=== PATIENT | female | born 1995 | race Caucasian/White ===

== ENCOUNTER 2017-12-10 15:04 | Emergency (ER) | payer SELFPAY ==
[2017-12-10 15:58] VITALS: BP 130/84
--- NOTE | 2017-12-10 16:26 | UC ---
Eye Complaint HPI - HPI Summary HPI Summary: 22-year-old female presents with 2 day history of left eye discomfort. Associated with morning crusting of the eye and some purulent drainage this morning. Denies injury, fever, chills, visual disturbances, sinus pain or pressure, nasal congestion or drainage, sore throat, or cough. Does not wear contact lenses. - History of Current Complaint Chief Complaint: UCEye Stated Complaint: EYE PAIN Time Seen by Provider: 12/10/17 16:04 Hx Obtained From: Patient Hx Last Menstrual Period: 12/02/17 Onset/Duration: Gradual Onset, Lasting Days - 2 Timing: Constant Severity Initially: Mild Pain Intensity: 6 Location of Injury: Conjunctiva, Eye Lid (lower) Aggravating Factor(s): Nothing Alleviating Factor(s): Nothing Associated Signs And Symptoms: Positive: Drainage (Purulent). Negative: Photophobia, Vision Impairment Bilateral, Fever, Swelling - Allergies/Home Medications Allergies/Adverse Reactions: Allergies Allergy/AdvReac Type Severity Reaction Status Date / Time No Known Allergies Allergy Verified 12/10/17 15:58 Home Medications: Home Medications Control 28 mg PO DAILY WITH MEAL 12/10/17 [History Confirmed 12/10/17] PMH/Surg Hx/FS Hx/Imm Hx - Additional Past Medical History Additional PMH: Denies significant medical history Previously Healthy: Yes - Surgical History Surgical History: Yes Surgery Procedure, Year, and Place: appendectomy 2013 - Family History Family History: Noncontributory - Social History Occupation: Student Lives: Dormitory/Roommates Alcohol Use: Weekly Substance Use Type: Marijuana Smoking Status (MU): Never Smoked Tobacco Review of Systems Constitutional: Negative Skin: Negative Eyes: Drainage, Eye Redness ENT: Negative Respiratory: Negative Is Patient Immunocompromised?: No All Other Systems Reviewed And Are Negative: Yes Physical Exam Triage Information Reviewed: Yes Appearance: Well-Appearing, No Pain Distress, Well-Nourished Vital Signs: Initial Vital Signs Temp 98.1 F 12/10/17 15:53 Pulse 69 12/10/17 15:53 Resp 18 12/10/17 15:53 BP 130/84 12/10/17 15:53 Pulse Ox 100 12/10/17 15:53 Vital Signs Reviewed: Yes Eyes: Positive: Conjunctiva Inflamed - palprebral conjunctiva lower lid with mild bulbar injection. Negative: Discharge ENT: Positive: Pharynx normal, TMs normal, Uvula midline. Negative: Nasal congestion, Nasal drainage Respiratory: Positive: No respiratory distress Neurological: Positive: Alert Skin Exam: Normal Eye Complaint Course/Dx - Course Course Of Treatment: 22 year old female with 2 day history of left eye discomfort, redness, and discharge. Exam revealed conjucitval erythema without discharge however with report of morning crusting and discharge will treat for bacterial conjuctivitis with 5 day course of Polytrim opthalmic drops. - Differential Dx/Diagnosis Provider Diagnoses: bacterial conjunctivitis Discharge - Sign-Out/Discharge Documenting (check all that apply): Patient Departure All imaging exams completed and their final reports reviewed: No Studies - Discharge Plan Condition: Stable Disposition: HOME Prescriptions: Polymyx/Trimethoprim OPTH* [Polytrim OPHTH*] 1 drop LEFT EYE QID 5 Days #1 btl Patient Education Materials: Conjunctivitis (ED) Referrals: [facility] [Primary Care Provider] - Morris Whalen MD [Medical Doctor] - (Call for appointment if no improvement in 3 days.) Additional Instructions: Use Polytrim Ophthalmic 1 drop into affected eye 4 times a day for 5 days. Do not share towels or washcloths with others to avoid spreading the infection. Try not to touch your eye. Use good hand hygiene. Follow up with Dr. Whalen, ophthalmology, in 3 days if no improvement. Seek immediate medical attention in the emergency room if you develop visual changes, swelling of the eye, severe pain in the eye, or any worsening of symptoms. - Billing Disposition and Condition Condition: STABLE Disposition: Home
== END 2017-12-10 16:28 | disposition home or self-care (01) ==
LOC: UCEAST 15:04
DX: H10.32 Unspecified acute conjunctivitis, left eye (principal)
CPT/HCPCS: 99202; G0463